=== PATIENT | male | born 1995 | race Caucasian/White ===

== ENCOUNTER → 2017-07-18 15:08 | Outpatient (CLI) | payer OTHER, SELFPAY ==
--- NOTE | 2017-07-18 15:27 | RAD_ITS ---
STUDY: X-RAY - LEFT ANKLE REASON FOR EXAM: Male, 21 years old. Left ankle pain. TECHNIQUE: . view(s) of the ankle. COMPARISON: None. FINDINGS: Normal visualized distal tibia and fibula. Normal medial and lateral malleoli. Mild spurring of the tibiotalar articulation. Normal visualized talus and calcaneus. The visualized subtalar, talonavicular, calcaneocuboid and tarsal articulations are normal. There is no demonstrated fracture. The soft tissue structures are unremarkable. RAD/Ankle min 3 Views IMPRESSION: No fracture. Mild spurring. Electronically Signed: Gabriel Owens MD at 23:57 EST , Service support ,
== END ==
PROVIDERS: Visit Provider Family Medicine
DX: M76.62 Achilles tendinitis, left leg (principal)
CPT/HCPCS: 73610

== ENCOUNTER → 2017-07-20 14:55 | Outpatient (CLI) | payer OTHER, SELFPAY ==
--- NOTE | 2017-07-20 15:08 | RAD_ITS ---
STUDY: X-RAY - LEFT HAND, ATTENTION THUMB FINGER REASON FOR EXAM: Male, 21 years old. Injury playing lacrosse TECHNIQUE: 3 view(s) of the finger were obtained. COMPARISON: None. FINDINGS: Normal metacarpal head. Normal metacarpophalangeal joint. There is a nondisplaced fracture of the proximal phalanx. Normal distal phalanx. Normal interphalangeal joint. RAD/Finger(s) Min 2 Views IMPRESSION: Fracture of the proximal phalanx of the thumb. Electronically Signed: Valentin Coleman MD at 15:44 EST Tel , Service support ,
== END ==
PROVIDERS: Visit Provider Family Medicine
DX: S62.515A Nondisplaced fracture of proximal phalanx of left thumb, initial encounter for closed fracture (principal); S60.012A Contusion of left thumb without damage to nail, initial encounter; X58.XXXA Exposure to other specified factors, initial encounter; Y93.65 Activity, lacrosse and field hockey
CPT/HCPCS: 73140

== ENCOUNTER → 2017-07-30 12:36 | Outpatient (CLI) | payer OTHER, SELFPAY ==
--- NOTE | 2017-07-30 12:50 | RAD_ITS ---
STUDY: X-RAY - LEFT HAND REASON FOR EXAM: Male, 21 years old. Injury , left thumb TECHNIQUE: 3 view(s) of the hand. COMPARISON: July 20, 2017 left hand x-ray FINDINGS: Normal radiocarpal articulation. Normal distal radioulnar joint. Normal visualized carpal bones. Normal carpal articulations Normal carpometacarpal articulation of the thumb. Normal second through fifth carpometacarpal joints. Normal metacarpi. Normal metacarpophalangeal joint of the thumb. Normal interphalangeal joint of the thumb. There is a persistent fracture line with trace blurring or the fracture lines. Normal metacarpophalangeal joints of the second through fifth fingers. Normal proximal and distal interphalangeal joints of the second through fifth fingers. Normal phalanges of the second through fifth fingers. There is soft tissue swelling about the thumb. RAD/Hand Min 3 Views IMPRESSION: Subacute fracture of the proximal phalanx first digit. Electronically Signed: Crystal Mcnally MD at 13:53 EST Tel , Service support ,
== END ==
PROVIDERS: Visit Provider Family Medicine
DX: S62.611A Displaced fracture of proximal phalanx of left index finger, initial encounter for closed fracture (principal); X58.XXXA Exposure to other specified factors, initial encounter
CPT/HCPCS: 73130

== ENCOUNTER 2017-10-05 20:28 | Emergency (ER) | payer OTHER, SELFPAY ==
[2017-10-05 20:29] VITALS: BP 147/84; PULSE 88; RESP 15; TEMP 36.9; BMI 26.4
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
[2017-10-05 20:56] VITALS: RESP 18
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
[2017-10-05 21:47] LABS: Alcohol, Blood (Medical)-Serum < 3.0 mg/dL
[2017-10-05] MEDS: Ondansetron ODT 4 MG Tablet PO ×2 (22:29→22:30)
[2017-10-05 22:34] VITALS: BP 155/93; PULSE 82; RESP 17
== END 2017-10-05 22:38 | disposition home or self-care (01) ==
PROVIDERS: Emergency Provider Emergency Medicine
DX: S06.0X9A Concussion with loss of consciousness of unspecified duration, initial encounter (principal); S00.83XA Contusion of other part of head, initial encounter; Y04.0XXA Assault by unarmed brawl or fight, initial encounter; Y93.89 Activity, other specified; Y92.9 Unspecified place or not applicable; Y99.8 Other external cause status
CPT/HCPCS: 70450; 80320; 99284; J7030; A4216; G0480